=== PATIENT | female | born 1985 | race Caucasian/White ===

== ENCOUNTER 2020-10-13 18:11 | Outpatient (CLI) | payer BC, MEDICAID ==
[2020-10-13 21:21] LABS: BHCG - Serum Negative (NEGATIVE); Pregs Control Background? CLEAR/WHITE (CLR/WHITE); Pregs Control Bar Appear? YES (CONTROL BAR)
[2020-10-14 06:59] LABS: SARS-CoV-2 PCR by NAA Not Detected (NotDetected)
== END 2020-10-13 18:12 | disposition home or self-care (01) ==
LOC: CSHLAB 18:11
PROVIDERS: ATTEND Obstetrics & Gynecology
DX: Z01.812 Encounter for preprocedural laboratory examination (principal); Z20.822 Contact with and (suspected) exposure to COVID-19
CPT/HCPCS: 84703; 87635; U0003; U0005

== ENCOUNTER 2020-10-15 08:01 | Day surgery (SDC) | payer BC, MEDICAID ==
[2020-10-14 09:28] VITALS: BMI 22.6
[2020-10-15] MEDS ORDERED: Lidocaine 1% MPF 2 ML VIAL ONE (09:13)
[2020-10-15] MEDS ORDERED: Lidocaine 1% w/Epinephrine 1:100K 20 ML VIAL ONE (09:40)
[2020-10-15] MEDS ORDERED: Ondansetron PF 4 MG/2 ML Vial ONE (09:47)
[2020-10-15] MEDS ORDERED: Dexamethasone 4 mg/ml Vial ONE (09:47)
[2020-10-15] MEDS ORDERED: Lidocaine 1% PF 5 ML VIAL ONE (09:47)
[2020-10-15] MEDS ORDERED: PROPOFOL 20 ML ONE (09:48)
[2020-10-15] MEDS ORDERED: Fentanyl 100 MCG/2 ML VIAL ONE (09:48)
[2020-10-15] MEDS ORDERED: Midazolam HCl 2 mg/2 ml Vial ONE (09:50)
[2020-10-15] MEDS ORDERED: Famotidine/PF 20 mg/2ml Vial ONE (09:51)
[2020-10-15] MEDS ORDERED: Ketorolac Tromethamine 30 MG/ML VIAL ONE (11:07)
[2020-10-15] MEDS ORDERED: HYDROcodone/Acetaminophen 5/325 mg Tablet PO PRN (11:27)
== END 2020-10-15 12:42 | disposition home or self-care (01) ==
LOC: CSHSDC 08:01
PROVIDERS: ATTEND Surgery
PROC: 0H9U0ZX Drainage of Left Breast, Open Approach, Diagnostic (ICD-10-PCS; principal; 2020-10-15)
DX: N60.12 Diffuse cystic mastopathy of left breast (principal); N60.82 Other benign mammary dysplasias of left breast; F17.210 Nicotine dependence, cigarettes, uncomplicated; Z79.899 Other long term (current) drug therapy; Z80.3 Family history of malignant neoplasm of breast
CPT/HCPCS: 19281; 76098; 88307; J0690; J1100; J1885; J2250; J2405; J2704; J3010; S0028